=== PATIENT | female | born 1975 | race Caucasian/White ===

== ENCOUNTER → 2020-10-22 11:05 | Outpatient (BNVA) | payer OTHER, SELFPAY | PROVIDERS: PCP Internal Medicine; Visit Provider Internal Medicine Gastroenterology | DX: Z76.89 Persons encountering health services in other specified circumstances (principal) ==

== ENCOUNTER → 2021-02-15 08:27 | Outpatient (BNVA) | payer OTHER, SELFPAY | PROVIDERS: PCP Internal Medicine; Visit Provider Internal Medicine Gastroenterology ==

== ENCOUNTER 2023-08-08 10:52 | Outpatient (AMB) | payer OTHER, SELFPAY ==
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
== END 2023-08-08 11:33 | disposition home or self-care (01) ==
PROVIDERS: PCP Internal Medicine; Visit Provider Orthopaedic Surgery
DX: M25.562 Pain in left knee (principal)
CPT/HCPCS: 99202

== ENCOUNTER 2023-08-08 17:17 | Outpatient (REF) | payer OTHER, SELFPAY | END 2023-08-08 17:18 | disposition home or self-care (01) | LOC: HO.HOSX 17:17 | PROVIDERS: Visit Provider Orthopaedic Surgery | DX: Z13.89 Encounter for screening for other disorder (principal) ==

== ENCOUNTER 2023-12-12 08:17 | Outpatient (AMB) | payer OTHER, SELFPAY ==
[2023-12-12 08:24] VITALS: BMI 37.7
--- NOTE | 2023-12-12 08:24 | A.OFFVIS_ITS ---
Intake Vital Signs 12/12/23 08:24 Height 5 ft 2 in Weight 206 lb BMI 37.7 Intake Visit Reasons: OV- Left knee MRI Review Intake Note: Mayra is a 48 year old female who presents for a MRI review of her Left knee. Patient reports her knee is feeling a little better. She reports intermittent ?locking sensation?. The patient states that her granddaughter was diagnosed with leukemia 2 years ago. The patient has been treated for breast cancer over the last year. The patient has seen her left knee MRI report which shows evidence of subchondral marrow edema. The patient questions whether or not these changes could be related to a blood malignancies such as leukemia. The patient states that her left knee discomfort is tolerable to her at this time. She wishes to hold off on surgery if possible. Allergies lidocaine patch Allergy (Uncoded 10/22/20 13:45) blister/burn Medication List - Last Reconciled 12/13/23 by Jose Armando Shaffer MD alprazolam 0.25 mg PO DAILY PRN carvedilol 6.25 mg PO once a day; must administer with a meal/food citalopram 10 mg PO DAILY levonorgestrel-ethinyl estrad 0.1-20 mg-mcg (Lessina) 1 tab PO DAILY naproxen 500 mg PO BID omeprazole 20 mg PO DAILY triamterene-hydrochlorothiazid 37.5-25 mg 1 cap PO QAM [facility] Surgical History History of (~1993) Hx of colonoscopy History of esophagogastroduodenoscopy (EGD) Family History Father No problems noted. Mother No problems noted. Son No problems noted. 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 Physical Exam Vital Signs: BMI result Body Mass Index 37.7 Const Other: Well-nourished well-developed very friendly female awake alert and oriented x3 in no acute distress Extrem Other: Bilateral lower extremity examination shows good capillary refill, no skin lesions noted, normal sensation light touch Left knee examination shows a minimal effusion, mild crepitus with range of motion, tenderness along her medial joint line, positive Celena's test, Results Reviewed Results Reviewed: MRI of the patient's left knee shows mild to moderate diffuse degenerative changes most significant in the patellofemoral joint, tearing of the medial meniscus, subchondral marrow edema deep to the chondral loss in the patellofemoral joint Assessment & Plan Assessment & Plan (1) Left knee pain: Code(s): M25.562 - Pain in left knee Plan Ms. Crowe presents with left knee pain and mechanical symptoms due to early degenerative joint disease as well as tearing of her medial meniscus. I had a lengthy discussion with the patient regarding the treatment options. At this point the patient's symptoms are tolerable to her. Activity modifications were discussed at length with the patient. Although the subchondral edema within the patellofemoral joint does not appear to be malignant in nature the patient states that she will discuss it further at her next appointment with her oncologist. She will contact me prior to that time should her symptoms worsen in any way. Feel free to call me at any time should questions regarding her orthopedic management arise. I spent 22 minutes in reviewing the patient's records and imaging studies, seeing the patient and documenting in the medical record. Coding Level of Care Code Est Pt Level 2 (87917) Diagnoses Left knee pain M25.562
== END 2023-12-12 08:49 | disposition home or self-care (01) ==
PROVIDERS: PCP Nurse Practitioner Family; Visit Provider Orthopaedic Surgery
DX: M17.12 Unilateral primary osteoarthritis, left knee (principal); S83.242A Other tear of medial meniscus, current injury, left knee, initial encounter
CPT/HCPCS: 99213

== ENCOUNTER → 2023-12-12 08:17 | Outpatient (BNVA) | payer OTHER, SELFPAY | PROVIDERS: PCP Nurse Practitioner Family; Visit Provider Orthopaedic Surgery ==

== ENCOUNTER 2025-09-01 17:17 | Emergency (ER) | payer BC, SELFPAY ==
--- NOTE | ~2025-09-01 | XR_ITS ---
CLINICAL HISTORY: chest pain Single view of the chest. COMPARISON: None provided. FINDINGS: Normal heart and mediastinal contours. No consolidation. No pleural effusion or pneumothorax. No acute fracture. IMPRESSION: 1. No consolidation. This document has been electronically signed by: Steven Sanchez MD on 09/01/2025 18:33:12
--- NOTE | ~2025-09-01 | CT_ITS ---
CLINICAL HISTORY: dizziness CT head without contrast. COMPARISON: None provided. FINDINGS: The visualized paranasal sinuses are clear. The mastoid air cells are clear. No calvarial fracture. No evidence for mass or mass effect. No intracranial hemorrhage or abnormal extra-axial fluid collection. No evidence of hydrocephalus. The basilar cisterns are patent. Posterior fossa appears unremarkable. IMPRESSION: 1. No acute intracranial findings. This document has been electronically signed by: Steven Sanchez MD on 09/01/2025 18:57:13
--- NOTE | 2025-09-01 17:19 | ECG_ITS ---
Test Reason : CP Blood Pressure : */* mmHG Vent. Rate : 74 BPM Atrial Rate : 74 BPM P-R Int : 130 ms QRS Dur : 80 ms QT Int : 400 ms P-R-T Axes : 51 3 51 degrees QTcB Int : 444 ms Normal sinus rhythm Normal ECG No previous ECGs available Referred By: Generic ED Physician Electronically Signed By: JOSÉ LUIS GAUTAM
[2025-09-01 17:37] VITALS: BP 151/108; PULSE 69; RESP 16; TEMP 36.6; O2SAT 98; BMI 39.5
--- NOTE | 2025-09-01 17:40 | ED_ITS ---
HPI - General Adult General Chief complaint: Dizziness Stated complaint: Chest pain Time Seen by Provider: 09/01/25 21:31 Source: patient, RN notes reviewed and old records reviewed Mode of arrival: ambulatory Limitations: no limitations History of Present Illness ED Provider: Elina RUFF narrative: Patient is a 50 year old female with a past medical history of GERD, HTN, and obesity who presents today with a 5 day history of chest discomfort and tingling down left arm and face. Pt states on was at an event when all of a sudden she developed chest discomfort mainly on the left side, central back pain, with associated tingling down her left arm and left face described as goosebumps . She took half an Ativan from a friend which partially improved her symptoms, when she went home she took the other half and resolved her discomfort. On Monday, patient had an episode of left sided chest pain, dizziness, and flushing. Pt states it resolved overtime. Monday and Monday were unremarkable, met with her PCP today that urged her to come to the ED. Patient denies oneill, SOB, n/v, or changes in vision. Related Data Home Medications ?Medication ?Instructions ?Recorded ?Confirmed levonorgestrel-ethinyl estradiol 1 tab PO DAILY 12/13/23 0.1 mg-20 mcg tablet (Lessina) omeprazole 20 mg capsule,delayed 20 mg PO DAILY 12/13/23 release triamterene 37.5 1 cap PO QAM 10/22/20 mg-hydrochlorothiazide 25 mg capsule alprazolam 0.25 mg tablet 0.25 mg PO DAILY PRN 1 12/13/23 carvedilol 6.25 mg tablet 6.25 mg PO .COMPLEX 02/15/21 12/13/23 citalopram 10 mg tablet 10 mg PO DAILY 02/15/2111/17 naproxen 500 mg tablet 500 mg PO BID 02/15/2112/13 Allergies Allergy/AdvReac Type Severity Reaction Status Date / Time lidocaine patch Allergy blister/bur Uncoded 09/01/25 17:40 n Review of Systems 2 Constitutional: Constitutional: Reports as per HPI, Denies chills, Denies fatigue and Denies fever(s) Cardiovascular: Cardiovascular: Reports chest pain, Reports chest pain at rest and Denies dyspnea Respiratory: Respiratory: Denies cough and Denies dyspnea Gastrointestinal: Gastrointestinal: Denies abdominal pain, Denies constipation and Denies vomiting Genitourinary: Genitourinary: Denies dysuria Integumentary/Breasts: Skin/Breast: Denies rash Neurologic: Denies focal weakness Psychiatric: Psychiatric: Reports anxiety Endocrine: Endocrine: Denies fatigue PMFSH Past Medical History Surgical History History of (~1993) Hx of colonoscopy History of esophagogastroduodenoscopy (EGD) Family History Family History Father No problems noted. Mother No problems noted. Son No problems noted. 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 Physical Exam ED Vital Signs: Vital Signs - 24 hr 09/01/25 17:37 09/01/25 19:46 09/01/25 21:04 Temperature 98 F Pulse Rate 69 76 69 Respiratory Rate 16 Blood Pressure 151/108 H 160/79 H 151/100 H Pulse Oximetry 98 Oxygen Delivery Method Room Air 09/01/25 21:05 09/01/25 21:05 09/01/25 21:33 Temperature 97.9 F Pulse Rate 72 69 69 Respiratory Rate Blood Pressure 153/102 H 147/93 H 156/90 H Pulse Oximetry 96 Oxygen Delivery Method Room Air BMI result Body Mass Index 39.5 Const General: healthy appearing, comfortable, no acute distress, alert and awake Nutritional Appearance: well nourished Orientation/consciousness: patient oriented x3 HENMT Head: Yes normocephalic and Yes atraumatic Eyes Eyelids: Yes eyelids normal Conjunctivae: conjunctivae normal Sclerae: sclerae normal Corneas: corneas normal Neck Neck: Yes full ROM Resp Effort & Inspection: normal respiratory effort, able to speak in complete sentences and not labored Auscultation: clear to auscultation bilaterally Cardio Rate: regular rate Rhythm: regular rhythm GI Palpation (GI): nontender, no guarding and not rigid Skin General skin exam: no rashes or lesions noted and elasticity normal Neuro General: patient oriented x3 Cranial nerves: Yes CN's II-XII intact bilaterally and Yes Bilaterally intact EOM present Cognition (Neuro): normal cognition Extrem Other: Moving all extremities well without any obvious deformities Course Course Course Narrative: RME: 50 yold female presents to the ED for intermittent chest pain, lighteadedness, and dizziness for the past 4 days. labs, EKG, and Head CT scan. NIH Score is zero. Medical Decision Making Medical Decision Making [facility] Narrative: 50-year-old female past medical history as above presents for evaluation of chest pain. She has had chest pain over last 5 days has been intermittent in currently has no chest pain. Denies any flu-like symptoms, no fevers, chills, cough, nausea vomiting. No sore throat. She called her primary doctor and was referred to the ED for further evaluation. EKG shows normal sinus rhythm with a rate of 74 beats per minute. No ST changes. Trop is negative, Wells score of 0. Vital signs are stable and the patient is currently asymptomatic, she will be discharged to follow up with the PCP Differential Diagnosis Differential Diagnoses: The differential diagnosis associated with the presentation includes PE OK Stoke Dyspepsia Trapezius Muscle Entrapment Admission/Observation Consideration of admission/observation: Escalation of care including admission/observation considered Lab Data [facility] Lab Attestation statement: I reviewed the patient's lab results. Mild leukocytosis of unclear etiology, no anemia. Normal platelet count. No electrolyte abnormalities warranting region. Troponin negative 09/01/25 17:48 09/01/25 17:48 Labs: Lab Results 09/01/25 Range/Units 17:48 WBC 11.7 H (4.8-10.8) X10*3/uL RBC 4.97 (4.20-5.50) X10*6/uL Hgb 15.3 (12.0-16.0) g/dl Hct 45.3 (37.0-47.0) % MCV 91.1 (80.0-98.0) fL MCH 30.8 (27.0-33.0) pg MCHC 33.8 (31.0-35.0) g/dl RDW 12.6 (11.0-16.0) % Plt Count 264 (160-400) X10*3/uL MPV 9.9 (9.4-12.3) fL Immature Gran % (Auto) 1.0 H (0.0-0.4) % Neut % (Auto) 55.6 (45-73) % Lymph % (Auto) 35.2 (20-40) % Grundy % (Auto) 5.4 (2-11) % Eos % (Auto) 2.1 (0-4) % Baso % (Auto) 0.7 (0-2) % Lymph # (Auto) 4.1 (1.2-4.9) X10*3/uL Grundy # (Auto) 0.6 (0.1-1.2) X10*3/uL Eos # (Auto) 0.2 (0.0-0.4) X10*3/uL Baso # (Auto) 0.1 (0.0-0.2) X10*3/uL Abs Immat Gran (auto) 0.12 H (0.00-0.03) X10*3/uL Absolute Neuts (auto) 6.5 (2.0-8.3) x10*3/uL Absolute Nucleated RBC 0.000 (0.0-0.012) X10*3/uL Nucleated RBC % (auto) 0.0 (0.0-0.2) /100WBC PT 12.0 (11.2-13.5) SEC INR 1.0 (0.9-1.1) APTT 28.8 (26.7-34.1) SEC Sodium 140 (135-145) mmol/L Potassium 3.4 (3.3-5.1) mmol/L Chloride 102 (96-108) mmol/L Carbon Dioxide 28 (22-29) mmol/L Anion Gap 13 (12-20) BUN 26 H (9-16) mg/dL Creatinine 1.01 (0.5-1.4) mg/dL Estim Creat Clear Calc 72.0 Estimated GFR 58 Random Glucose 96 (60-115) mg/dL Calcium 10.3 H (8.4-10.2) mg/dL Total Bilirubin 0.2 (0.0-1.0) mg/dL AST 34 H (5-31) U/L ALT 50 H (0-31) U/L Alkaline Phosphatase 110 (39-117) U/L Troponin I High Sens < 2.7 (<3.5-17.0) ng/L Total Protein 7.9 (6.5-8.0) g/dL Albumin 4.9 (3.5-5.0) g/dL Independent Interpretation I performed an independent interpretation of an: EKG (As above) Radiology Impression Discussion of test interpretation with radiology: I have reviewed the radiologist's reading. Radiologist Impression: FINDINGS: The visualized paranasal sinuses are clear. The mastoid air cells are clear. No calvarial fracture. No evidence for mass or mass effect. No intracranial hemorrhage or abnormal extra-axial fluid collection. No evidence of hydrocephalus. The basilar cisterns are patent. Posterior fossa appears unremarkable. IMPRESSION: 1. No acute intracranial findings. This document has been electronically signed by: Steven Sanchez MD on 09/01/2025 18:57:13 FINDINGS: Normal heart and mediastinal contours. No consolidation. No pleural effusion or pneumothorax. No acute fracture. IMPRESSION: 1. No consolidation. This document has been electronically signed by: Steven Sanchez MD on 09/01/2025 18:33:12 Discharge Plan Discharge Clinical Impression: Chest pain Patient Disposition: Home, Self-Care Instructions: Chest Pain (ED) Additional Instructions: Your workup in the ER today was reassuring. This includes your head CT, chest x-ray, EKG and labs. It is important that you follow up with your primary doctor, I did put in a referral to Cardiology. You may benefit from an echocardiogram and/or Holter monitor Prescriptions: No Action omeprazole 20 mg capsule,delayed release(DR/EC) 20 mg PO DAILY triamterene-hydrochlorothiazid 37.5-25 mg capsule 1 cap PO QAM levonorgestrel-ethinyl estrad [Lessina] 0.1-20 mg-mcg tablet 1 tab PO DAILY carvedilol 6.25 mg tablet 6.25 mg PO .COMPLEX Patient Comments: Taking once a day Rx Instructions: 6.25 mg PO once a day; must administer with a meal/food citalopram 10 mg tablet 10 mg PO DAILY alprazolam 0.25 mg tablet 0.25 mg PO DAILY PRN naproxen 500 mg tablet 500 mg PO BID [place] [facility] [place] [facility] [place] Group] Referral Note: chest pain, palpitations Discharge Date/Time: 09/01/25 22:30 Print Language: Cameroonian
[2025-09-01 17:53] LABS: Hematocrit 45.3 % (37.0-47.0); Hemoglobin 15.3 g/dl (12.0-16.0); Imm Gran Abs Auto 0.12 X10*3/uL (0.00-0.03); Imm Gran Pct Auto 1.0 % (0.0-0.4); Lymphocytes Absolute Auto 4.1 X10*3/uL (1.2-4.9); MANUAL DIFF FLAG NO; Mean Corpuscular HGB Conc 33.8 g/dl (31.0-35.0); Mean Corpuscular Hemoglobin 30.8 pg (27.0-33.0); Mean Corpuscular Volume 91.1 fL (80.0-98.0); NRBC Abs Auto 0.000 X10*3/uL (0.0-0.012); NRBC Pct Auto 0.0 /100WBC (0.0-0.2); Platelet Count 264 X10*3/uL (160-400); Red Blood Count 4.97 X10*6/uL (4.20-5.50); White Blood Count 11.7 X10*3/uL (4.8-10.8)
[2025-09-01 17:59] LABS: INTERNATIONAL NORM RATIO 1.0 (0.9-1.1); Prothrombin Time 12.0 SEC (11.2-13.5)
[2025-09-01 18:01] LABS: Partial Thromboplastin Time 28.8 SEC (26.7-34.1)
[2025-09-01 18:06] LABS: Alanine Aminotransferase 50 U/L (0-31); Albumin Level 4.9 g/dL (3.5-5.0); Alkaline Phosphatase 110 U/L (39-117); Anion Gap 13 (12-20); Aspartate Amino Transferase 34 U/L (5-31); Blood Urea Nitrogen 26 mg/dL (9-16); Calcium 10.3 mg/dL (8.4-10.2); Carbon Dioxide 28 mmol/L (22-29); Chloride 102 mmol/L (96-108); Creatinine Clr Calc Pharmacy 72.0; Estimated Glomerular Filt Rate 58; Potassium 3.4 mmol/L (3.3-5.1); Sodium 140 mmol/L (135-145); Total Protein 7.9 g/dL (6.5-8.0)
[2025-09-01 18:15] LABS: Troponin-I High Sensitivity < 2.7 ng/L (<3.5-17.0)
[2025-09-01 19:46] VITALS: BP 160/79; PULSE 76
[2025-09-01 21:04] VITALS: BP 151/100; PULSE 69
[2025-09-01 21:05] VITALS: BP 147/93; BP 153/102; PULSE 69; PULSE 72
[2025-09-01 21:33] VITALS: BP 156/90; PULSE 69; TEMP 36.6; O2SAT 96
== END 2025-09-01 22:30 | disposition home or self-care (01) ==
PROVIDERS: Physician Assistant; Emergency Provider Emergency Medicine; PCP Nurse Practitioner Family
DX: R07.9 Chest pain, unspecified (principal); R42 Dizziness and giddiness; R20.2 Paresthesia of skin; I10 Essential (primary) hypertension; K21.9 Gastro-esophageal reflux disease without esophagitis; E66.9 Obesity, unspecified; Z79.899 Other long term (current) drug therapy
CPT/HCPCS: 36415; 70450; 71045; 80053; 84484; 85025; 85610; 85730; 93005; 99284

== ENCOUNTER → 2025-09-01 17:19 | Outpatient (BNV) | payer BC, SELFPAY | PROVIDERS: Emergency Provider Emergency Medicine; PCP Nurse Practitioner Family; Visit Provider Internal Medicine | DX: R07.9 Chest pain, unspecified (principal) | CPT/HCPCS: 93010 ==

== ENCOUNTER → 2025-09-01 17:40 | Outpatient (BNV) | payer OTHER, SELFPAY | PROVIDERS: PCP Nurse Practitioner Family; Visit Provider Radiology Diagnostic Radiology | DX: R42 Dizziness and giddiness (principal); R07.9 Chest pain, unspecified | CPT/HCPCS: 70450; 71045 ==